=== PATIENT | male | born 1965 | race Two or more races ===

== ENCOUNTER 2021-05-12 12:50 | Emergency (ER) | payer OTHER ==
[~2021-05-12] VITALS: Ht 167.6 cm; Wt 70.0 kg
[2021-05-12 13:00] VITALS: BP 146/89
--- NOTE | 2021-05-12 13:27 | PHYS DOC ---
General Adult EDM: Chief Complaint: OTHER COMPLAINTS HPI: HPI: Patient is a 55 year old male who presents with Covid positive for the last 6 days. Patient is here today because he is very anxious and has been watching his blood pressure and his blood pressure was in the 160s over 80s today and on EMS to bring him here. He has not called his primary care doctor to let them know about this. He states in [place] he had gotten medication that is homeopathic for high blood pressure. He states he took that today. He states he is also been putting garlic under his tongue to lower his blood pressure. Patient states also his hands will begin to tingle. Patient denies headache, c hest pain, shortness of breath, fever, abdominal pain, nausea, vomiting, diarrhea, syncope, dizziness, focal weakness. Denies any medical history of needing hypertensive medications. Denies any other pertinent medical history. No family pertinent history. Patient denies any pain at this time. (VALERIE LYNNE LDR RN) Review of Systems: Review of Systems: Constitutional: Denies fever or chills. [] Eyes: Denies change in visual acuity. [] HENT: Denies nasal congestion or sore throat. [] Respiratory: Denies cough or shortness of breath. [] Cardiovascular: Denies chest pain or edema. + Concern of high blood pressure [] GI: Denies abdominal pain, nausea, vomiting, bloody stools or diarrhea. [] : Denies dysuria. [] Musculoskeletal: Denies back pain or joint pain. [] Integument: Denies rash. [] Neurologic: Denies headache, focal weakness or sensory changes. + Concern for intermittent tingling in hands [] Endocrine: Denies polyuria or polydipsia. [] Lymphatic: Denies swollen glands. [] Psychiatric: Denies depression or anxiety. [] (VALERIE LYNNE LDR RN) Heart Score: C/O Chest Pain: No (VALERIE LYNNE LDR RN) Physical Exam: PE: Constitutional: Well developed, well nourished, no acute distress, non-toxic appearance. [] HENT: Normocephalic, atraumatic, bilateral external ears normal, oropharynx moist, no oral exudates, nose normal. [] Eyes: PERRLA, EOMI, conjunctiva normal, no discharge. [] Neck: Normal range of motion, no tenderness, supple, no stridor. [] Cardiovascular:Heart rate regular rhythm, no murmur [] Lungs & Thorax: Bilateral breath sounds clear to auscultation [] Abdomen: Bowel sounds normal, soft, no tenderness, no masses, no pulsatile masses. [] Skin: Warm, dry, no erythema, no rash. [] Back: No tenderness, no CVA tenderness. [] Extremities: No tenderness, no cyanosis, no clubbing, ROM intact, no edema. [] Neurologic: Alert and oriented X 3, normal motor function, normal sensory function, no focal deficits noted. [] Psychologic: Affect normal, judgement normal, mood normal. Anxious [] (VALERIE LYNNE APRN) Current Patient Data: Vital Signs: Vital Signs Date Time Temp Pulse Resp B/P (MAP) Pulse Ox O2 Delivery O2 Flow Rate FiO2 05/12/21 13:00 100.3 97 16 146/89 (108) 98 Room Air 100.3 (RICHARD WHITLEY DO) EKG: EKG: [] (VALERIE LYNNE APRN) Radiology/Procedures: Radiology/Procedures: [] (VALERIE LYNNE APRN) Course & Med Decision Making: Course & Med Decision Making Pertinent Labs and Imaging studies reviewed. (See chart for details) See HPI. Alert and oriented x4. Ambulatory steady gait. Speaks in full clear sentences. Patient is very anxious. He states he is eating and drinking appropriately. No extremity edema. Skin pink warm and dry. Radial pulses are equal, strong and present. Cap refill less than 2 seconds. Lungs are clear to auscultation in all lobes. Vital signs are within normal limits. Patient is educated on anxiety and panic attacks. He is educated on symptoms of hypert ension and when to be concerned. He is educated to call his primary care physician. [] (VALERIE LYNNE APRN) Course & Med Decision Making I have reviewed and was available for consultation in the emergency department for this patient that was seen by midlevel provider. Agree with plan. Richard Whitley DO (RICHARD WHITLEY DO) [place] Disclaimer: [place] Disclaimer: This electronic medical record was generated, in whole or in part, using a voice recognition dictation system. (VALERIE LYNNE LDR RN) Departure Departure Impression: Primary Impression: Anxiety about health Additional Impression: Encounter for medical screening examination Disposition: HOME / SELF CARE / HOMELESS Condition: STABLE Patient Instructions: Anxiety and Panic Attacks Additional Instructions: Call your primary care physician as soon as possible. Drink plenty of fluids. Rest. If you begin having chest pain, severe headache or severe shortness of breath return to the emergency room. VALERIE LYNNE APRN May 12, 2021 13:27 RICHARD WHITLEY DO May 12, 2021 16:03
== END 2021-05-12 13:45 | disposition home or self-care (01) ==
LOC: ER 12:50
DX: U07.1 COVID-19 (principal); F41.9 Anxiety disorder, unspecified; I10 Essential (primary) hypertension
CPT/HCPCS: 99283

== ENCOUNTER 2021-05-14 13:44 | Emergency (ER) | payer SELFPAY | END 2021-05-14 15:00 | disposition left against medical advice (07) | LOC: ER 13:44 | DX: U07.1 COVID-19 (principal); M54.6 Pain in thoracic spine; Z53.21 Procedure and treatment not carried out due to patient leaving prior to being seen by health care provider ==